=== PATIENT | female | born 1940 | race Caucasian/White ===

== ENCOUNTER 2019-07-22 09:30 | Outpatient (CLI) | payer MEDICARE, SELFPAY ==
--- NOTE | ~2019-07-22 | MM_ITS ---
EXAMINATION: MM screening [facility] w ralph HISTORY: Screening mammogram TECHNIQUE: Craniocaudal and mediolateral oblique 3-D tomosynthesis images were obtained and synthetic 2-D images were generated. CAD analysis was submitted and interpreted. COMPARISON: 12/30/2017, 12/28/2016, 07/07/2015 bilateral digital screening mammogram examinations BREAST PARENCHYMAL COMPOSITION: There are scattered areas of fibroglandular density. FINDINGS: There is no evidence of suspicious mass, calcification, or architectural distortion to sugg est malignancy in either breast. There has been no suspicious interval change. IMPRESSION: 1. No mammographic evidence of malignancy. 2. Recommend routine screening mammography in one year. BI-RADS Category 1: Negative Reviewed, dictated and finalized at location A. E MECHANIC
== END 2019-07-22 09:31 | disposition home or self-care (01) ==
LOC: ANHIMG 09:34
PROVIDERS: PCP Family Medicine; Visit Provider Nurse Practitioner
DX: Z12.31 Encounter for screening mammogram for malignant neoplasm of breast (principal)
CPT/HCPCS: 77063; 77067

== ENCOUNTER → 2020-04-20 09:03 | Outpatient (CLI) | payer MEDICARE, SELFPAY ==
--- NOTE | ~2020-04-20 | XR_ITS ---
EXAMINATION: XR chest 2V EXAM DATE: 04/20/2020 09:16 INDICATION: R06.2 - Wheezing TECHNIQUE: Frontal and lateral projections of the chest obtained and reviewed. Comparison is made to prior examination from 04/11/2017. FINDINGS: Mild hyperinflation. The lungs are clear. There are no pleural effusions. The cardiomedi astinal silhouette is within normal limits. There is no pneumothorax suspected. There are mild bony degenerative changes. IMPRESSION: No acute cardiopulmonary findings. Reviewed, dictated and finalized at location A. S CUTTER
== END ==
PROVIDERS: Visit Provider Physician Assistant
DX: R06.2 Wheezing (principal)
CPT/HCPCS: 71046

== ENCOUNTER 2020-10-05 12:02 | Outpatient (CLI) | payer MEDICARE, SELFPAY ==
--- NOTE | ~2020-10-05 | MM_ITS ---
EXAMINATION: MM screening [facility] w ralph HISTORY: Screening mammogram TECHNIQUE: Craniocaudal and mediolateral oblique 3-D tomosynthesis images were obtained and synthetic 2-D images were generated. CAD analysis was submitted and interpreted. COMPARISON: 07/22/2019, 12/30/2017, 12/28/2016 bilateral digital screening mammogram examinations BREAST PARENCHYMAL COMPOSITION: There are scattered areas of fibroglandular density. FINDINGS: There is no evidence of suspicious mass, calcification, or architectural distortion to sugg est malignancy in either breast. There has been no suspicious interval change. IMPRESSION: 1. No mammographic evidence of malignancy. 2. Recommend routine screening mammography in one year. BI-RADS Category 1: Negative. Reviewed, dictated and finalized at location A.
== END 2020-10-05 12:03 | disposition home or self-care (01) ==
PROVIDERS: PCP Family Medicine; Visit Provider Family Medicine
DX: Z12.31 Encounter for screening mammogram for malignant neoplasm of breast (principal)
CPT/HCPCS: 77063; 77067

== ENCOUNTER 2021-10-20 10:32 | Outpatient (CLI) | payer MEDICARE, SELFPAY ==
--- NOTE | ~2021-10-20 | MM_ITS ---
EXAMINATION: MM screening [facility] BI w ralph HISTORY: Screening TECHNIQUE: Craniocaudal and mediolateral oblique 3-D tomosynthesis images were obtained and synthetic 2-D images were generated. CAD analysis was submitted and interpreted. COMPARISON: Comparison to multiple prior studies sequentially, with oldest reviewed study dated 01/28. BREAST PARENCHYMAL COMPOSITION: There are scattered areas of fibroglandular density. FINDINGS: Benign-appearing bilateral breast masses are stable. There is no evidence of suspicious mas s, calcification, or architectural distortion to suggest malignancy in either breast. There has been no suspicious interval change. IMPRESSION: 1. No mammographic evidence of malignancy. 2. Recommend routine screening mammography in one year. BI-RADS Category 2: Benign finding(s). Reviewed, dictated and finalized at location A.
== END 2021-10-20 10:33 | disposition home or self-care (01) ==
PROVIDERS: PCP Family Medicine; Visit Provider Family Medicine
DX: Z12.31 Encounter for screening mammogram for malignant neoplasm of breast (principal)
CPT/HCPCS: 77063; 77067

== ENCOUNTER 2023-06-29 10:42 | Outpatient (CLI) | payer MEDICARE, SELFPAY ==
--- NOTE | ~2023-06-29 | MM_ITS ---
EXAMINATION: MM screening [facility] BI w ralph HISTORY: Screening mammogram TECHNIQUE: Craniocaudal and mediolateral oblique 3-D tomosynthesis images were obtained and synthetic 2-D images were generated. CAD analysis was submitted and interpreted. COMPARISON: 10/20/2021, 10/05/2020, 07/22/2019 BREAST PARENCHYMAL COMPOSITION: There are scattered areas of fibroglandular density. FINDINGS: No suspicious mass, calcification, or architectural distortion are identified in either deanna ast to suggest malignancy. There has been no suspicious interval change. IMPRESSION: 1. No mammographic evidence of malignancy. 2. Recommend routine screening mammography while the patient remains in good health. BI-RADS Category 1: Negative Reviewed, dictated and finalized at location A. TUTOR IMPRESSION: 1. No mammographic evidence of malignancy. 2. Recommend routine screening mammography while the patient remains in good he alth. BI-RADS Category 1: Negative
--- NOTE | ~2023-06-29 | DEXA_ITS ---
Bone Density Report Name: DANY ORNELAS Age: 83 Sex: Female Ethnicity: White Date of : 1940 Indication: postmenopausal; screening for osteoporosis; height loss; inflammatory bowel disease; hysterectomy; Referring Provider: VIKRAM FAITH Study: Bone densitometry was performed. Exam Date: June 29, 2023 Accession number: [id number] Bone Density: Region BMD T-score Z-score Classification AP Spine(L1-L4) 0.891 -1.4 1.3 Osteopenia Femoral Neck (Left) 0.524 -2.9 -0.6 Osteoporosis Total Hip (Left) 0.622 -2.6 -0.5 Osteoporosis Femoral Neck (Right) 0.495 -3.2 -0.8 Osteoporosis Total Hip (Right) 0.601 -2.8 -0.7 Osteoporosis Total Hip Mean 0.612 -2.7 -0.6 Osteoporosis World Health Organization criteria for BMD impression classify patients as: Normal (T-score at or above -1.0), Osteopenia (T-score between -1.0 and -2.5), or Osteoporosis (T-score at or below -2.5). 10-year Fracture Risk: FRAX not reported because: Some T-score for Spine Total or Hip Total or Femoral Neck at or below -2.5 Clinical Information Provided by Patient: Has used the following medications: Vitamin D, Calcium Has the following medical conditions: Inflammatory bowel diseases, Hysterectomy Patient maximum height was 67.5 Menopause Age: 52 Drinks caffeinated beverages Onset of menses at age 14 Number of children 4 Impression: The patient has osteoporosis, based on the Right Femoral Neck T-score. Discussion: INCREASED RISK OF FRACTURE. BONE DENSITY IS UNDESIRABLY LOW AT ONE OR MORE SKELETAL SITES, CONSISTENT WITH POSTMENOPAUSAL OSTEOPOROSIS. This patient's lowest T-score meets the World Health Organization's (WHO) criteria for osteoporosis at one or more sites (T-score -2.5 or below). In untreated patients, the risk of osteoporotic fracture increases approximately two-fold for each 1.0 SD decrease in T-score. Low bone density is not the only risk factor for fracture; also consider factors such as patient's age, frailty or poor health, risk of falling, risk of injury, previous osteoporotic fracture, family history of osteoporosis, cigarette smoking, low body weight, etc. Not everyone with low bone mineral density has osteoporosis; osteomalacia and other metabolic bone disorders should also be considered. Patients who have osteoporosis should be evaluated for specific diseases and conditions (secondary causes) that may cause or contribute to bone loss. The [place] [employer]ocrinologists (AACE) and National Osteoporosis Foundation (NOF) recommend pharmacologic intervention for all postmenopausal women whose T-score is in this range. The patient should follow a healthful lifestyle (good nutrition with adequate calcium and vitamin D, and appropriate weight-bearing exercise). Follow-Up: Consider a
== END 2023-06-29 10:43 | disposition home or self-care (01) ==
LOC: ANHIMG 10:44
PROVIDERS: PCP Family Medicine; Visit Provider Physician Assistant
DX: Z12.31 Encounter for screening mammogram for malignant neoplasm of breast (principal); M81.0 Age-related osteoporosis without current pathological fracture; Z78.0 Asymptomatic menopausal state
CPT/HCPCS: 77063; 77067; 77080

== ENCOUNTER 2024-01-01 07:09 | Outpatient (RCR) | payer MEDICARE, SELFPAY ==
[2023-11-25 10:00] VITALS: BMI 33.3
== END 2024-02-11 09:22 | disposition home or self-care (01) ==
LOC: ANHWOC 07:09
PROVIDERS: PCP Family Medicine; Visit Provider Physician Assistant Medical
DX: S81.809D Unspecified open wound, unspecified lower leg, subsequent encounter (principal)
CPT/HCPCS: 99212; 99213; G0463

== ENCOUNTER 2024-08-11 14:38 | Outpatient (CLI) | payer MEDICARE, SELFPAY | END 2024-08-11 14:39 | disposition home or self-care (01) | PROVIDERS: PCP Family Medicine; Visit Provider Family Medicine | DX: Z12.31 Encounter for screening mammogram for malignant neoplasm of breast (principal) | CPT/HCPCS: 77063; 77067 ==

== ENCOUNTER 2024-08-31 12:29 | Outpatient (CLI) | payer MEDICARE, SELFPAY ==
--- NOTE | ~2024-08-31 | XR_ITS ---
EXAMINATION: XR lumbar spine 2-3V DATE: 08/31/2024 12:51 INDICATION: Dorsalgia, unspecified. TECHNIQUE: 3 views of lumbar spine were obtained. COMPARISON: Lumbar spine radiographs 07/16/2014 FINDINGS: There is 25 degrees levoscoliosis of lumbar spine. Vertebral body heights are normal. There is mildly decreased disc height at L1-L2 and severely decreased disc height from L2-L3 through L5-S1 . 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 Surgical clips in the right upper quadrant a re likely from cholecystectomy. IMPRESSION: 1. Severe lumbar spondylosis. 2. Lumbar levoscoliosis. Reviewed, dictated and finalized at location A.
--- NOTE | ~2024-08-31 | XR_ITS ---
EXAMINATION: XR_CERV2-3V_CR DATE: 08/31/2024 12:51 INDICATION: Dorsalgia, unspecified. TECHNIQUE: 4 views of cervical spine were obtained. COMPARISON: Cervical spine MRI 05/16/2012 FINDINGS: There is 5 degrees dextrocurvature of cervical spine. There is kyphosis of lower cervical s pine. Vertebral body heights are normal. There is mildly decreased disc height at C4-C5 and severely decreased disc height at C5-C6 and C6-C7. There is multilevel facet joint osteoarthritis, severe on t he left at C3-C4 and C5-C6. There is ankylosis of the left C4-C5 facet joint. There is mild central c anal stenosis at C5-C6 and C6-C7. No prevertebral soft tissue swelling. IMPRESSION: 1. Severe cervical spondylosis. Reviewed, dictated and finalized at location A.
--- NOTE | ~2024-08-31 | XR_ITS ---
EXAMINATION: XR thoracic spine 2V DATE: 08/31/2024 12:51 INDICATION: Dorsalgia, unspecified. TECHNIQUE: 2 views of the thoracic spine were obtained. COMPARISON: Chest 2 views 04/20/2020 FINDINGS: There is 7 degrees levocurvature of cervicothoracic spine and 12 degrees dextroscoliosis of thoracic spine. There is kyphosis of thoracic spine. There is mild chronic anterior wedging of multi ple mid thoracic vertebral bodies. There is severely decreased disc height at many levels. There are endplate osteophytes at most levels. IMPRESSION: 1. Severe thoracic spondylosis. 2. Scoliosis and thoracic kyphosis. Reviewed, dictated and finalized at location A.
== END 2024-08-31 12:30 | disposition home or self-care (01) ==
PROVIDERS: PCP Family Medicine; Visit Provider Student in an Organized Health Care Education/Training Program
DX: M47.814 Spondylosis without myelopathy or radiculopathy, thoracic region (principal); M41.84 Other forms of scoliosis, thoracic region; M47.816 Spondylosis without myelopathy or radiculopathy, lumbar region; M41.86 Other forms of scoliosis, lumbar region; M47.812 Spondylosis without myelopathy or radiculopathy, cervical region
CPT/HCPCS: 72040; 72070; 72100

== ENCOUNTER 2025-02-26 11:15 | Outpatient (RCR) | payer MEDICARE, SELFPAY ==
--- NOTE | 2025-01-20 15:20 | OPREHPOC ---
Outpatient Therapy Plan of Care This is a Multidisciplinary Plan of Care that may contain components documented by all disciplines (PT, OT, and ST.) PT Problem 1 PT Problem #1 Knowledge Deficit PT Goal 1 Goal / Goal Update Patient to demonstrate independence with HEP for improved self-reliance of symptom management. Target Visit 5 PT Problem 2 PT Problem #2 Impaired Balance PT Goal 1 Goal / Goal Update 1. Patient to score >=50/56 on the Garcia Balance Scale to show improvements in balance and decreased level of assistance needed. 2. Pt will increase LEFS score by at least 9 points in order to demonstrate the minimal clinically important difference (MCID) in functional improvement. Target Visit 10 PT Problem 3 PT Problem #3 Impaired Strength PT Goal 1 Goal / Goal Update 1. Patient to demonstrate Galile[place] hip strength >=4+/5 for improved functional stability required for ADLs. 2. Patient to perform 5xSTS from 20 sec to 15 sec with 1 UE use to demonstrate an increase in B LE functional transfers. Target Visit 10 PT Problem 4 PT Problem #4 Impaired Endurance PT Goal 1 Goal / Goal Update Patient to improve distance ambulated during 2MWT from 400 feet to 475 feet to demonstrate an improvement in ADL endurance. Target Visit 10
--- NOTE | 2025-01-20 15:20 | PTOPEVAL1 ---
Assessment and note entered by Melissa Wyatt, PT Evaluation Information Assessment Status Evaluation Diagnosis unsteadiness on feet ICD-10 Condition Codes (PT) Abnormalities of gait and mobility R26.9,Weakness R53.1 Subjective Information Pt presents to skilled PT with decreased balance posing fall risk/safety risk. She has issues with quick turning and feels like she walks like a drunk. Pt has had issues with balance for over 6 months. Pt notes balance has recently gotten worse due to increased back pain and stiffness, hip weakness and neuropathy. Pt has had 1 fall off her treadmill about 1 year ago. Pt denies use of an AD currently. She has used a cane on and off after her knee replacements but does not use it daily due to forgetting its there. She has an exercise ball at home that she tries to exercise with at least a few times a week. Pt is reporting at times she has back pain that starts then makes her feet numb. She reports when this happens she hardly get up to move around. She has a pending neurology consult for these symptoms. Pt has trouble with standing/walking/stairs if she does not take her time. Reported Pain Level Pain Score 4: Self Report Assessment PT Clinical Summary Pt is a 84 year old female who presents to physical therapy with a primary complaint of balance issues. Pt demonstrates ODELL LE weakness, low back pain, decreased mobility, decreased endurance, gait deficit, and impaired balance that limit their ability to perform ADLs and increase fall risk. Pt will benefit from skilled physical therapy to address the above listed deficits and return to PLOF. HEP instructed and written handout provided, EX tolerated well with no adverse effects to note post-session. Pt was educated on importance of adherence to HEP. Pt was also educated on anatomy, prognosis, home modalities, and PT POC. Plan of Care Interventions Aquatic Therapy,Gait Training,Hot Pack/Cold Pack, Manual Therapy,Neuro Re-education,Patient/ Caregiver Education,Therapeutic Activities, Therapeutic Exercise,Self-Care/Home Management PT Services Indicated Yes Treatment Frequency and 2x/wk for 10 sessions Duration These treatments will address the objective and functional deficits as defined above. The patient will be advanced safely and appropriately in order for the patient to progress towards his/her prior level of function. Additional exercises will be introduced and as well as a comprehensive home exercise program upon discharge, if needed, ?to ensure carryover of functional gains achieved in the clinic. This treatment plan has been reviewed and agreement upon by the patient.
== END 2025-04-20 23:59 | disposition home or self-care (01) ==
LOC: ANHPT 11:15
PROVIDERS: PCP Family Medicine; Visit Provider Student in an Organized Health Care Education/Training Program
DX: R26.81 Unsteadiness on feet (principal); R53.1 Weakness
CPT/HCPCS: 97035; 97110; 97140; 97162; 97530

== ENCOUNTER 2025-05-31 11:35 | Outpatient (CLI) | payer MEDICARE, SELFPAY ==
[2025-05-31 12:52] LABS: Hemoglobin A1C 5.3 % (<5.7)
[2025-05-31 13:26] LABS: Thyroid Stimulating Hormone 1.120 uIU/mL (0.465-4.680)
--- OUTSIDE RECORDS SUMMARY | 2025-05-31 13:34 | XMS_ITS | Clinical Summary ---
Author Organization [facility] [address] Address [address] [place] [address] Care Team Providers Care Truck Despatcher Name Role Phone Faith Starkey MD Primary Care Provider [phone] Allergies Active Allergy Reactions Criticality Noted Date Comments Adhesive Tape-Silicones Blisters High 01/21/2018 Iodinated Contrast Media Headache High 04/02/2013 Headaches last 6 weeks, extreme pain Oxycodone Rash,Nausea & Vomiting Medium 02/06/2018 Lifitegrast Shortness of breath High 04/04/2022 Medications cetirizine (ZyrTEC) 10 mg capsule take 1 by Oral route every day 0 07/15/19 13 Active omeprazole (PriLOSEC) 40 mg capsule Take 1 capsule (40 mg total) by mouth dining room manager before breakfast 0 02/09/20 17 Active cholecalciferol (VITAMIN D-3) 5,000 unit tablet Take 1 tablet (5,000 Units total) by mouth once a week Active aspirin 81 mg enteric coated tablet Take 1 tablet (81 mg total) by mouth daily Active multivitamin capsule Take 1 capsule by mouth daily Active cycloSPORINE (RESTASIS) 0.05 % ophthalmic emulsion 03/19/20 22 Active lisinopriL (PRINIVIL,ZESTRI L) 20 mg tabletIndication s:Essential hypertension Take 1 tablet (20 mg total) by mouth daily 10/30/19 24 Active ascorbate calcium, vitamin C, 500 mg tablet 2 (two) times a day 12/23/19 20 Active multivit with minerals/lutein (MULTIVITAMIN 50 PLUS ORAL) daily 06/08/20 19 Active metoprolol tartrate (LOPRESSOR) 25 mg immediate release tabletIndication s:Essential hypertension,Pre mature atrial contraction,Vent ricular premature beats,Palpitatio ns TAKE 1/2 TABLET BY MOUTH IN THE MORNING AND 1 TABLET IN THE EVENING 135 tablet 1 05/10/20 25 Active atorvastatin (LIPITOR) 10 mg tablet TAKE 1 TABLET BY MOUTH EVERY DAY 90 tablet 05/11/20 25 Active atorvastatin (LIPITOR) 10 mg tablet TAKE 1 TABLET BY MOUTH EVERY DAY 90 tablet 1 11/12/19 25 025 Discontinued metoprolol tartrate (LOPRESSOR) 25 mg immediate release tabletIndication s:Essential hypertension,Pre mature atrial contraction,Vent ricular premature beats,Palpitatio ns Take 1/2 tablet 12.5 mg in the morning and 1 tablet 25 mg in the evening. 180 tablet 02/12/20 25 025 Discontinued Active Problems Problem Noted Date Diagnosed Date Other osteoporosis without current pathological fracture 07/20/2024 Assessment & Plan (02/23/2025 1:53 PM CDT): Unknown. No past results to review. Will have her sign release to get results from [facility]. We'll reach out to let you know the results & what the future plan is. Discussed different options IF osteoporosis: Boniva: monthly x 3-5 yrs (nausea, heartburn, esophageal irritation, bone/joint/muscle pain, osteonecrosis, Reclast--kidney problems) Fosamax: weekly orally 5-10 yrs, IV 3-6 yrs Reclast: yearly for 3-5 years Prolia: every 6 mos for up to 8 yrs (skin rashes) Forteo: daily x2 years (EDEN, dizziness, nausea, leg cramps) Actonel: 35mg weekly 3-5 years (not w/esophageal problems) Evenity: monthly x 12 mos Tymlos: daily injection x2 years Vitamin D deficiency 07/20/2024 Dizziness 10/11/2022 Sinus tachycardia 10/02/2021 Palpitations 09/26/2021 SVT (supraventricular tachycardia) 09/26/2021 WHEAT (dyspnea on exertion) 12/29/2020 Interscapular pain 12/29/2020 Chronic fatigue 12/29/2020 Edema, lower extremity 05/07/2018 Aftercare following right knee joint replacement surgery 03/07/2018 Primary osteoarthritis of right knee 12/27/2017 Overview (12/27/2017): Added automatically from request for surgery [id number] Nonsustained ventricular tachycardia 10/15/2016 Overview (11/02/2016): Nonsustained ventricular tachycardia Right ventricular enlargement 10/15/2016 Overview (11/02/2016): Right ventricular enlargement Assessment & Plan (03/24/2017 2:39 PM CDT): Moderate RV enlargement and mild hypo noted onpast Echo. May relate to DEON. Ventricular premature beats 10/15/2016 Overview (11/02/2016): PVCs (premature ventricular contractions) Assessment & Plan (03/24/2017 2:38 PM CDT): H/O palps, infreq. PVCs and once 6 beats VT Good LV fxn, no CAD, on Bb, quiescent. Anxiety 10/15/2016 Overview (11/02/2016): Anxiety Hypercholesterolemia 04/12/2016 Overview (09/14/2016): Hypercholesteremia Assessment & Plan (03/24/2017 2:41 PM CDT): POC lipids as above; in past Ldl 126. Pt wonders if she should be tx'd for hypercholesterolemia. Surprisingly, 10 yr CV Risk score suggests a 20% risk of cardiac prob or CVA, even though LDL isn't very high. Discussed reducing risk w/ statin tx.. Obesity with body mass index 30 or greater 01/15 Overview (09/14/2016): Obesity (BMI 30-39.9) Obstructive sleep apnea syndrome 03/15/2015 Overview (09/14/2016): DEON (obstructive sleep apnea) Assessment & Plan (03/24/2017 2:41 PM CDT): Iintolerant of CPAP Premature atrial contraction 03/15/2015 Overview (09/14/2016): APC (atrial premature contractions) Essential hypertension 03/15/2015 Overview (09/14/2016): HTN (hypertension), benign Assessment & Plan (03/24/2017 2:38 PM CDT): BP at goal Hordeolum externum 09/09/2014 Skin neoplasm 09/09/2014 Gastroesophageal reflux disease 10/24/2013 Overview (09/14/2016): ESOPHAGEAL REFLUX Vitamin B deficiency 10/24/2013 Overview (09/14/2016): VITAMIN B DEFICIENCY NOS Keratosis, senilis 11/26/2012 Actinic keratosis 11/26/2012 DJD (degenerative joint disease) of knee 012 Intertrigo 11/26/2011 Resolved Problems Problem Noted Date Diagnosed Date Resolved Date Abnormal electrocardiography 07/21/2014 03/12/2017 Overview (09/14/2016): Abnormal EKG Hypertension 10/24/2013 03/12/2017 Overview (09/14/2016): HYPERTENSION NOS Encounters Date Type Department Care Team Description 04/27/2025 Orders Only [facility] Diabetes and Endocrinology [address] [place] [id number] Provider, MD Jacob from Last 3 Months Immunizations Immunization Administration Dates Next Due Influenza, Split 03/27/2012,04/12/2010 Influenza, Trivalent, High D ose, Split, Preservative Free, Intramuscular 04/07/2018 Influenza, Trivalent, IM (MDV) 02/14/2009,2007 Pneumococcal Polysaccharide PPV23 04/12/2010 Surgical History Surgery Date Site/Laterality Comments CHOLECYSTECTOMY 06/10/1992 - 06/09/1993 Cholecystectomy TUBAL LIGATION 1960s Bilateral tubal ligation KNEE ARTHROSCOPY 06/10/2009 - 06/09/2010 Right Arthroscopy knee MOHS SURGERY 05/10/2010 - 06/09/2010 Left jawline ORIF FOOT FRACTURE 06/10/2004 - 06/09/2005 Left TOTAL ABDOMINAL HYSTERECTOMY W/ BILATERAL SALPINGOOPHORECTOMY 06/10/1992 - 06/09/1993 Hysterectomy, total abdominal, BSO TOTAL KNEE ARTHROPLASTY 06/10/2014 - 06/09/2015 Left UPPER GASTROINTESTINAL ENDOSCOPY - 07/10/2017 COLONOSCOPY 06/10/2012 - 06/09/2013 CARDIAC CATHETERIZATION 07/11/2012 - 08/07/2012 CATARACT EXTRACTION W/ INTRAOCULAR LENS IMPLANT 06/10/2015 - 06/09/2016 Bilateral Medical History Medical History Date Comments Gastroesophageal reflux disease GERD Hx Other Medical Herniated Disk Adiposity Obesity Osteoarthritis Bilateral knees Anemia Hypertension Inflammatory bowel disease Peripheral neuropathy Bilateral feet Urinary tract infection History of palpitations Treated with metoprolol per cards note 10/29/2017 Former smoker Quit 1979 Hyperlipidemia Treated with sta tin History of aspiration pneumonia 06/2017 Basal cell carcinoma 05/2010 Lef t jaw s/p MOHS Obesity (BMI 30-39.9) BMI= 38.7 on 01/21/2018 History of esophageal spasm Sleep apnea, obstructive Pt unab le to tolerate CPAP machine DDD (degenerative disc disease), thoracic Family History Medical History Relation Name Comments Heart attack Brother Coronary artery disease Father Camille nary artery disease; Heart disease Father Arthritis Mother COPD Mother COPD; Cause of : COPD Diabetes Mother Diabetes type II Mother Diabetes -T ype II; Heart disease Mother Hypertension Mother Other Sister 2 Alive and well; Relation Name Status Comments Brother Alive Father Mother (Age 80) Sister 1 Alive Sister 2 Social History Tobacco Use Types Packs/Day Years Used Date Smoking Tobacco: Former Cigarettes 0.3 18 0 01/21/1962 - 01/22/1980 Smokeless Tobacco: Never Tobacco Cessation:Counseling Given: Not Answered Comments:Smoking History Packs/day: 1 Packs Alcohol Use Standard Drinks/Week Comments Yes 7 (1 standard drink = 0.6 oz pur e alcohol) 1 bottle of red wine everyday AUDIT-C Answer Date Recorded Q1: How often do you have a drink containing alcohol? Never 07/20/2024 Q2: How many drinks containi ng alcohol do you have on a typical day when you are drinking? Patient does not drink Q3: How often do you have si x or more drinks on one occasion? Never 07/20/2024 PHQ-2 Answer Date Recorded PHQ-2 Total Score (If total score is 3 or more points, staff should administer the PHQ-9) 0 07/20/2024 Comments No Sex and Gender Information Value Date Recorded Sex Assigned at Not on file Legal Sex Female 3:29 AM NURSE CLINICIAN Gender Identity Not on file Sexual Orientation Straight 07/20/2024 10 :47 AM NURSE CLINICIAN Occupation Industry Job Start Date Job End Date retired Not on file Not on file Not on file Last Filed Vital Signs Vital Sign Reading Time Taken Comments Blood Pressure 130/80 02/23/2025 1:10 PM CDT Pulse 64 02/23/2025 1:10 PM CDT Temperature 36.7 C (98.1 F) 02/20/2018 4:16 PM CDT Respiratory Rate 18 02/23/2025 1:10 PM CDT Oxygen Saturation 99% 02/16/2025 10:24 AM CDT Inhaled Oxygen Concentration - - Weight 94.6 kg (208 lb 9.6 oz) 02/23/2025 1:10 P M CDT Height 167.6 cm (5' 5.98) 02/23/2025 1:10 PM CD T Body Mass Index 33.69 02/23/2025 1:10 PM CDT Plan of Treatment Health Maintenance Due Date Last Done Comments DTaP/Tdap/Td Vaccine (1 - Tdap) 1951 Hepatitis B Screening 1960 Well Visit 65+ 2007 Zoster Vaccine (2 of 3) 05/24/2015 03/29/2015 Influenza Vaccine (#1) 2025 1, 03/29/2020, 04/05/2019, Additional history exists Osteoporosis Screening-Bone Density Scan 06/29/2025 06/29/2023 Depression Screening 07/20/2025 07/20/2024 Fall Risk Assessment 07/20/2025 07/20/2024 Pneumococcal vaccine 65+ Completed 06/10/2016, 1108/2009 Medical Devices Implanted Type Area Blender/Braze Applicator Device Identifier Shelf Expiration Date Model / Serial / Lot [employer] [id number] [place]os Lv Broad Spectrum Cement 40gm Bone - S*+[id number]* - [id number] Implanted:Qty: 1 on 02/06/2018 by Natan Chairez MD at [facility] Right: Patella [employer] 04/09/2022 [id number] / *[id number]* / [id number] Description:40 g [employer] [id number] Vanguard 71/00nep68bk Cruciate Retaining Lipped Knee 0d Bearing - S0 - [id number] Implanted:Qty: 1 on 02/06/2018 by Natan Chairez MD at [facility] Right: Knee [employer] [id number] 11/11/2022 [id number] / 0 / [id number] [employer] [id number] 28mm 1 Peg Wire Knee Standard Component Patellar Series A - S0 - [id number] Implanted:Qty: 1 on 02/06/2018 by Natan Chairez MD at [facility] Right: Patella [employer] [id number] 12/04/2022 [id number] / 0 / [id number] [employer] 259256 75mm Primary Knee Tray Tibial Porous - S0 - [id number] Implanted:Qty: 1 on 02/06/2018 by Natan Chairez MD at [facility] Right: Knee [employer] [id number] 12/17/2022 [id number] / 0 / [id number] [employer] 404174 Vanguard 67.5mm Cruciate Retaining Primary Knee Right Component - S0 - [id number] Implanted:Qty: 1 on 02/06/2018 by Natan Chairez MD at [facility] Right: Knee [employer] [id number] 11/19/2027 [id number] / 0 / [id number] [employer] 082503 Ascent Maxim 12.5mm 80mm Primary Fin Knee Stem Tibial - S0 - [id number] Implanted:Qty: 1 on 02/06/2018 by Natan Chairez MD at [facility] Right: Knee [employer] [id number] 12/01/2027 [id number] / 0 / [id number] [employer] 328885 6.5mm 40mm Self Tap Low Profile Hip Acetabular Cancellous Dome - S0 - [id number] Implanted:Qty: 1 on 02/06/2018 by Natan Chairez MD at [facility] Right: Knee [employer] 02/18/2027 [id number] / 0 / [id number] [employer] [id number] 6.5mm 40mm Self Tap Low Profile Hip Acetabular Cancellous Dome - S0 - [id number] Implanted:Qty: 3 on 02/06/2018 by Natan Chairez MD at [facility] Right: Knee [employer] 12/20/2027 [id number] / 0 / [id number] Procedures Procedure Name Priority Date/Time Associated Diagnosis Comments DEXA AXIAL SKELETON BONE DENSITY 1 OR MORE SITES Schedule Routine, Read Routine (OP Routine) 06/29/2023 11:46 AM NURSE CLINICIAN from Last 3 Months or Most Recently Relevant to Health Maintenance Results * Dexa Axial Skeleton Bone Density 1 or 2 Site (06/29/2023 11:46 AM NURSE CLINICIAN) Anatomical Region Laterality Modality Body N/A Radiographic Julianna ging us Historical Provider IMG DXA PROCEDURES Final Result from Last 3 Months or Most Recently Relevant to Health Maintenance Insurance [facility] MEDICARE MEDICARE ADVANTAGE Member Subscriber Plan / Payer (Ef fective 2018-Present) Name:Juan Villagomez Relation to Subscriber:Self Name:Juan Villagomez Payer ID:[id number] (NAIC) Type:[facility] MEDICARE Address: [place] [id number] MEDICARE ADVANTAGE Member Subscriber Plan / Payer (Ef fective 2017-Present) Name:Juan Villagomez Relation to Subscriber:Self Name:Juan Villagomez Payer ID:[id number] (NAIC) Type:[facility] MEDICARE Address: [place] [id number] MEDICARE ADVANTAGE [employer] MEDICARE Advance Directives For more information, please contact: [phone] * Full Code (Latest Code Status on File) Date Activated Date Inactivated Comments 02/08/2018 9:24 PM * Full Code Date Activated Date Inactivated Comments 02/06/2018 2:11 PM 02/07/2018 6:39 PM Care Teams Truck Despatcher Relationship Specialty Start Date End Date Faith Starkey MD PCP - General Family Medicine 04/26/20
--- OUTSIDE RECORDS SUMMARY | 2025-05-31 13:34 | XMS_ITS | Encounter Summary ---
Author Organization [facility] Address [address] [place] [address] Care Team Providers Care Optical Element Coater Name Role Phone Monica Massey MD Unavailable [phone] Encounter Details Date Type Department Care Team (Late st Contact Info) Description 10/05/2020 Lab Requisition [facility] Derm[facility] Lab [address] [place] [id number] Flash Shah MD [address] [facility] [place] [address] Social History Tobacco Use Types Packs/Day Years Used Date Smoking Tobacco: Never Assessed Comments Unknown Sex and Gender Information Value Date Recorded Sex Assigned at Not on file Legal Sex Female 11:32 AM FARM OPERATOR Gender Identity Not on file Sexual Orientation Not on file documented as of this encounter Plan of Treatment Not on file documented as of this encounter Procedures Procedure Name Priority Date/Time Associated Diagnosis Comments DERMATOPATHOLOGY Routine 10/03/2020 12:0 0 AM CDT documented in this encounter Results * DERMATOPATHOLOGY (10/03/2020 12:00 AM CDT) Case Report Dermatopathology Report Case: [id number] Authorizing Provider: Flash Shah MD Collected: 10/03/2020 12:00 AM Ordering Location: [facility]erm[facility] Lab Received: 10/05/2020 06:13 AM Pathologist: Zhen Leo MD Specimen: Skin, left calf 04/29/202 1 1:58 PM CDT DERMATOPATHOLOGY LABORATORY Final Diagnosis Specimen A. SKIN, left calf: SUPERFICIAL A PERIVASCULAR LYMPHOCYTIC INFILTRATE WITH EOSINOPHILS (T63.484A) STASIS DERMATITIS (L30.8) (see microscopic description and comment) 1:58 PM CDT DERMATOPATHOLOGY LABORATORY at 1358 CDT Clinical History SCC vs bug bite.Path#[id number] 1:58 PM CDT DERMATOPATHOLOGY LABORATORY Gross Description Specimen A: Received is one formalin filled container labeled with the patient's name and designated left calf. The specimen consists of a shave biopsy measuring 7x4x1 mm. Jar 0. 1:58 PM CDT DERMATOPATHOLOGY LABORATORY Microscopic Description Specimen A. SKIN, left calf: There is a superficial perivascular and interstitial infiltrate of lymphocytes with eosinophils. In addition, there is focal spongiosis. The dermis shows a sparse, perivascular lymphocytic infiltrate surrounding dilated, thick-walled vessels, which are increased in number. COMMENT: These histological findings are consistent with an arthropod bite reaction. 1:58 PM CDT DERMATOPATHOLOGY LABORATORY Disclaimer An external and internal positive and negative controls are appropriate for the histochemical, immunohistochemical and immunofluorescence stain(s) in this case (if any), except where stated explicitly. The performance characteristics of the stain(s) cited in this report were developed and its performance characteristic determined by the Dermatopathology Laboratory at [facility], directed by Dr. Jhonny Leo. These tests need not be, and therefore are not, approved by the [place] Food and Drug Administration. The tests are used for clinical purposes. Billing Codes Specimen Charges Stain Charges 41992 1 1 1:58 PM CDT DERMATOPATHOLOGY LABORATORY Embedded Images 1:58 PM CDT DERMATOPATHOLOGY LABORATORY Pathology/Cytolog y TISSUE SPECIMEN FROM SKIN / Unknown 10/03/2020 10/05/2020 6:13 AM CDT us Flash Shah MD LAB - PATHOLOGY/CYTOLOGY ORDER AGUSTIN Final Result DERMATOPATHOLOGY LABORATORY [facility] - Department of Dermatology [address], [address] [phone] documented in this encounter Visit Diagnoses Not on filedocumented in this encounter Care Teams Optical Element Coater Relationship Specialty Start Date End Date Monica Massey MD Orthopedic Surgery 04/09/12 documented as of this encounter
--- OUTSIDE RECORDS SUMMARY | 2025-05-31 13:34 | XMS_ITS | Encounter Summary ---
Author Organization [facility] Address [address] [place] [address] Care Team Providers Care Revenue Liaison Name Role Phone Alfredo Diaz MD Primary Care Provider [phone] Nicole Sahu MD Primary Care Provider Faith Starkey MD Primary Care Provider [phone] Encounter Details Date Type Department Care Team (Late st Contact Info) Description 02/09/2018 Documentation [facility] Case Management [address] [address] Maria Teresa Hassan RN Social History Tobacco Use Types Packs/Day Years Used Date Smoking Tobacco: Former Cigarettes 0.3 18 0 01/21/1962 - 01/22/1980 Smokeless Tobacco: Never Comments:Smoking History Pac ks/day: 1 Packs Alcohol Use Standard Drinks/Week Comments Yes 7 (1 standard drink = 0.6 oz pur e alcohol) 1 bottle of red wine everyday Comments No Sex and Gender Information Value Date Recorded Sex Assigned at Not on file Legal Sex Female 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 Gender Identity Not on file Sexual Orientation Straight 07/20/2024 10 :47 AM FIELD SERVICE REP Occupation Industry Job Start Date Job End Date retired Not on file Not on file Not on file documented as of this encounter Plan of Treatment Not on file documented as of this encounter Visit Diagnoses Not on filedocumented in this encounter Care Teams Revenue Liaison Relationship Specialty Start Date End Date Alfredo Diaz MD [address] [place] [address] PCP - General Family Practice 03/12/17 05/06/18 Nicole Sahu MD [address] [place] [address] PCP - General Family Medicine 05/07/18 04/25/20 Faith Starkey MD [address] [place] [address] PCP - General Family Medicine 04/26/20 documented as of this encounter
--- OUTSIDE RECORDS SUMMARY | 2025-05-31 13:34 | XMS_ITS | Encounter Summary ---
Author Organization [facility] Address [address] [place] [address] Care Team Providers Care Engraver Tender Name Role Phone Maegan Solorzano MD Primary Care Provider [phone] Alfredo Diaz MD Primary Care Provider [phone] Niocle Sahu MD Primary Care Provider Faith Starkey MD Primary Care Provider Encounter Details Date Type Department Care Team (Late st Contact Info) Description 09/10/2016 Orders Only [facility] ProviderJacob MD [address] [place] [address] Social History Tobacco Use Types Packs/Day Years Used Date Smoking Tobacco: Former Cigarettes Q uit: 06/10/1981 Comments:Smoking History Pac ks/day: 1 Packs Alcohol Use Standard Drinks/Week Comments Yes 0 (1 standard drink = 0.6 oz pur e alcohol) Comments Unknown Sex and Gender Information Value Date Recorded Sex Assigned at Not on file Legal Sex Female 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 us Historical Provider [facility] RACHEL PEARCE Final Result documented in this encounter Visit Diagnoses Not on filedocumented in this encounter Care Teams Engraver Tender Relationship Specialty Start Date End Date Maegan Solorzano MD PCP - General 09/07/16 03/11/17 Alfredo Diaz MD [address] [place] [address] PCP - General Family Practice 03/12/17 05/06/18 Nicole Sahu MD [address] [place] [address] PCP - General Family Medicine 05/07/18 04/25/20 Faith Starkey MD [address] [place] [address] PCP - General Family Medicine 04/26/20 documented as of this encounter
--- OUTSIDE RECORDS SUMMARY | 2025-05-31 13:34 | XMS_ITS | Clinical Summary ---
Author Organization [facility] Address [address] [place] [address] Care Team Providers Care Pleater Name Role Phone Monica Massey MD Unavailable [phone] Source Comments [facility],non-owned Affiliates and Associated Physician Practices is amultiple site organization consisting of ambulatory clinics and hospital sitesin [place], [place], [place] and [place]. This disclosure is being madepursuant to the Care Everywhere program and may not contain all information available regarding this patient. Last updated 18.[facility] Allergies Active Allergy Reactions Criticality Noted Date Comments Latex 12/07/2011 Medications * Be aware that medications may not be up to date on this document. Alwaysverify current medications with the patient. No known medications Active Problems Problem Noted Date Diagnosed Date DJD (degenerative joint disease) of knee 012 Social History Tobacco Use Types Packs/Day Years Used Date Smoking Tobacco: Never Assessed Comments Unknown Sex and Gender Information Value Date Recorded Sex Assigned at Not on file Legal Sex Female 11:32 AM [employer] Gender Identity Not on file Sexual Orientation Not on file Last Filed Vital Signs Vital Sign Reading Time Taken Comments Blood Pressure - - Pulse - - Temperature - - Respiratory Rate - - Oxygen Saturation - - Inhaled Oxygen Concentration - - Weight 99.8 kg (220 lb) 12/07/2011 9:43 AM CDT Height 165.1 cm (5' 5) 12/07/2011 9:43 AM CDT Body Mass Index 36.61 12/07/2011 9:43 AM CDT Plan of Treatment Health Maintenance Due Date Last Done Comments BONE DENSITY TESTING 1942 DTAP/TDAP/TD VACCINES (1 - Tdap) 1961 PNEUMOCOCCAL VACCINE 50+ (1 of 1 - PCV) 1992 ZOSTER VACCINE (1 of 2) 1992 Respiratory Syncytial Virus (RSV) Vaccine Pt: or over 60 yrs (1 - 1-dose 75+ series) 2017 DEPRESSION SCREENING 06/10/2024 COVID-19 VACCINE (1 - 2024-2 6 season) 2025 INFLUENZA VACCINE (#1) 2025 HEPATITIS B VACCINE Aged Out No longe r eligible based on patient's age to complete this topic HIB VACCINE Aged Out No longer eligi ble based on patient's age to complete this topic HPV VACCINE Aged Out No longer eligi ble based on patient's age to complete this topic MENINGOCOCCAL (Group B) VACC INE SHARED DECISION-MAKING Aged Out No longer eligibl e based on patient's age to complete this topic MENINGOCOCCAL GROUPS A/C/Y/W VACCINE Aged Out No longer eligible b ased on patient's age to complete this topic Insurance MEDICARE CS-Keys [facility] MANAGED MEDICARE ADV Care Teams Pleater Relationship Specialty Start Date End Date Monica Massey MD Orthopedic Surgery 04/09/12
[2025-05-31 13:44] LABS: Vitamin B12 930.0 pg/mL (239-931)
== END 2025-05-31 11:36 | disposition home or self-care (01) ==
PROVIDERS: PCP Student in an Organized Health Care Education/Training Program; Visit Provider Student in an Organized Health Care Education/Training Program
DX: G62.9 Polyneuropathy, unspecified (principal); R25.1 Tremor, unspecified; Z13.1 Encounter for screening for diabetes mellitus
CPT/HCPCS: 36415; 82607; 83036; 84443